=== PATIENT | male | born 1960 | race Caucasian/White ===

== ENCOUNTER 2019-12-13 09:45 | Inpatient (IN) | payer OTHER ==
[~2019-12-13] VITALS: Ht 170.2 cm; Wt 87.2 kg
[2019-12-13] MEDS ORDERED: BENA40TA3 PO (10:55)
[2019-12-13 10:56] LABS: BASOPHILS # (AUTO) 0.01 x10^3/uL (0-0.1); BASOPHILS % (AUTO) 0 % (0-1); EOSINOPHILS % (AUTO) 0 % (1-7); LYMPHOCYTES # (AUTO) 0.38 x10^3/uL (1-3.4); LYMPHOCYTES % (AUTO) 6 % (22-44); MD NO; MEAN CORPUSCULAR HEMOGLOBIN 31.6 pg (27.5-34.5); MEAN CORPUSCULAR HGB CONC 33.3 g/dL (33.2-36.2); MEAN PLATELET VOLUME 6.3 fL (7.4-10.4); MONOCYTES # (AUTO) 0.41 x10^3/uL (0.2-0.8); MONOCYTES % (AUTO) 6 % (2-9); NEUTROPHILS # (AUTO) 5.77 x10^3/uL (1.8-6.8); NEUTROPHILS % (AUTO) 88 % (42-75); PLATELET COUNT 272 x10^3/uL (130-400); RED CELL DISTRIBUTION WIDTH 12.2 % (9.4-14.8)
[2019-12-13 11:05] LABS: ALANINE AMINOTRANSFERASE 99 U/L (12-78); ALBUMIN 2.8 g/dL (3.4-5.0); ANION GAP 10 mmol/L (5-15); CALCIUM 8.5 mg/dL (8.5-10.1); CHLORIDE 103 mmol/L (98-107)
[2019-12-13 11:08] LABS: ALKALINE PHOSPHATASE 49 U/L (45-117); BILIRUBIN,TOTAL 0.5 mg/dL (0.2-1.0); TOTAL PROTEIN 7.3 g/dL (6.4-8.2)
--- NOTE | 2019-12-13 11:32 | NUR ---
PLAN FOR CT EXPLAINED TO PT. PIV ESTABLISHED. SP02 FLUCTUATING BETWEEN 87-90% ON RA, 2L NC PLACED WITH EFFECT. CALL LIGHT W/I REACH
[2019-12-13] MEDS ORDERED: OMNIPAQUE 350 MG/ML, 100ML BOTTLE ONE (12:11)
[2019-12-13] MEDS ORDERED: CEFTRIAXONE PMX 1GM/50ML 50 ML IV ONE (12:30)
[2019-12-13] MEDS ORDERED: AZITHROMYCIN 500 MG in SODIUM CHLORIDE 0.9% 250 ML IV ONE (12:30)
[2019-12-13] MEDS ORDERED: CEFTRIAXONE PMX 1GM/50ML 50 ML ONE (12:40)
[2019-12-13] MEDS ORDERED: ACETAMINOPHEN 500 MG TABLET PO ONE (13:00)
[2019-12-13] MEDS ORDERED: ACETAMINOPHEN 500 MG TABLET ONE (13:16)
[2019-12-13] MEDS: AZITHROMYCIN 500 MG in SODIUM CHLORIDE 0.9% 250 ML IV SCH (14:00)
[2019-12-13] MEDS: CEFTRIAXONE PMX 1GM/50ML 50 ML IV SCH (14:00)
[2019-12-13] MEDS ORDERED: DEXAMETHASONE 4 MG/ML, 1ML ONE (14:10)
[2019-12-13] MEDS ORDERED: ENOXAPARIN 40 MG/0.4 ML ONE (14:10)
[2019-12-13] MEDS: ENOXAPARIN 40 MG/0.4 ML SQ SCH (14:11)
[2019-12-13] MEDS: DEXAMETHASONE 4 MG/ML, 1ML IVPush SCH (14:11)
--- NOTE | 2019-12-13 14:17 | NUR ---
DIET TRAY ORDERED.
--- NOTE | 2019-12-13 14:31 | NUR ---
MEAL TRAY PROVIDED AND SET UP
--- NOTE | 2019-12-13 16:10 | NUR ---
PT ATE ONLY 10% OF MEAL
[2019-12-13] MEDS: ASCORBIC ACID 500 MG TABLET PO SCH (17:19)
[2019-12-13 18:02] VITALS: BP 133/86
[2019-12-13 19:31] VITALS: BP 128/82
[2019-12-13] MEDS: THIAMINE 100MG TABLET PO SCH (20:47)
[2019-12-14 01:19] VITALS: BP 136/84
[2019-12-14] MEDS: DEXAMETHASONE 4 MG/ML, 1ML IVPush SCH ×2 (02:15→13:52)
[2019-12-14 06:06] LABS: CHLORIDE 106 mmol/L (98-107)
[2019-12-14 06:21] LABS: ALANINE AMINOTRANSFERASE 112 U/L (12-78); ALBUMIN 2.4 g/dL (3.4-5.0); ALKALINE PHOSPHATASE 47 U/L (45-117); ANION GAP 9 mmol/L (5-15); BILIRUBIN,TOTAL 0.4 mg/dL (0.2-1.0); CALCIUM 8.7 mg/dL (8.5-10.1); CREATININE 0.93 mg/dL (0.7-1.3); TOTAL PROTEIN 6.6 g/dL (6.4-8.2)
[2019-12-14 06:46] LABS: BASOPHILS % (AUTO) 0 % (0-1); EOSINOPHILS % (AUTO) 0 % (1-7); LYMPHOCYTES # (AUTO) 0.48 x10^3/uL (1-3.4); LYMPHOCYTES % (AUTO) 12 % (22-44); MEAN CORPUSCULAR HEMOGLOBIN 31.5 pg (27.5-34.5); MEAN CORPUSCULAR HGB CONC 33.2 g/dL (33.2-36.2); MEAN PLATELET VOLUME 6.6 fL (7.4-10.4); MONOCYTES # (AUTO) 0.32 x10^3/uL (0.2-0.8); MONOCYTES % (AUTO) 8 % (2-9); NEUTROPHILS # (AUTO) 3.09 x10^3/uL (1.8-6.8); NEUTROPHILS % (AUTO) 79 % (42-75); PLATELET COUNT 272 x10^3/uL (130-400); RED BLOOD COUNT 4.99 x10^6/uL (4.38-5.82); RED CELL DISTRIBUTION WIDTH 12.3 % (9.4-14.8)
[2019-12-14 06:47] LABS: MD SCAN
[2019-12-14 08:26] VITALS: BP 131/84
[2019-12-14] MEDS: ASCORBIC ACID 500 MG TABLET PO SCH ×2 (08:51→16:54)
[2019-12-14] MEDS: THIAMINE 100MG TABLET PO SCH ×2 (08:52→20:28)
[2019-12-14] MEDS: BENAZEPRIL 20 MG TABLET PO SCH (08:52)
[2019-12-14] MEDS: ZINC SULFATE 220 MG CAPSULE PO SCH (08:52)
[2019-12-14] MEDS: CHOLECALCIFEROL 5,000u TAB PO SCH (08:52)
[2019-12-14 13:09] VITALS: BP 116/74
[2019-12-14] MEDS: ENOXAPARIN 40 MG/0.4 ML SQ SCH (13:50)
[2019-12-14] MEDS: CEFTRIAXONE PMX 1GM/50ML 50 ML IV SCH (13:53)
[2019-12-14] MEDS: AZITHROMYCIN 500 MG in SODIUM CHLORIDE 0.9% 250 ML IV SCH (15:11)
[2019-12-14 19:46] VITALS: BP 124/81
[2019-12-15 01:12] VITALS: BP 136/88
[2019-12-15] MEDS: DEXAMETHASONE 4 MG/ML, 1ML IVPush SCH ×2 (03:18→13:45)
[2019-12-15 07:32] VITALS: BP 125/80
[2019-12-15] MEDS: BENAZEPRIL 20 MG TABLET PO SCH (09:15)
[2019-12-15] MEDS: ASCORBIC ACID 500 MG TABLET PO SCH ×2 (09:15→17:30)
[2019-12-15] MEDS: ZINC SULFATE 220 MG CAPSULE PO SCH (09:15)
[2019-12-15] MEDS: CHOLECALCIFEROL 5,000u TAB PO SCH (09:15)
[2019-12-15] MEDS: THIAMINE 100MG TABLET PO SCH ×2 (09:15→20:12)
[2019-12-15] MEDS: CEFTRIAXONE PMX 1GM/50ML 50 ML IV SCH (13:46)
[2019-12-15] MEDS: ENOXAPARIN 40 MG/0.4 ML SQ SCH (13:46)
[2019-12-15 14:21] VITALS: BP 137/77
[2019-12-15] MEDS: AZITHROMYCIN 500 MG in SODIUM CHLORIDE 0.9% 250 ML IV SCH (14:36)
[2019-12-15 18:58] LABS: CLOSTRIDIUM DIFFICILE ANTIGEN NEGATIVE; CLOSTRIDIUM DIFFICILE TOXIN NEGATIVE (Negative)
[2019-12-15 19:51] VITALS: BP 137/83
[2019-12-16 01:20] VITALS: BP 126/74
[2019-12-16] MEDS: DEXAMETHASONE 4 MG/ML, 1ML IVPush SCH ×2 (01:52→11:19)
[2019-12-16] MEDS ORDERED: MELATONIN 5 MG TABLET ONE (02:06)
[2019-12-16] MEDS ORDERED: MELATONIN 5 MG TABLET PO ONE (02:30)
[2019-12-16 08:04] VITALS: BP 132/79
[2019-12-16] MEDS ORDERED: BENAZEPRIL 10 MG TABLET ONE (09:07)
[2019-12-16] MEDS: THIAMINE 100MG TABLET PO SCH ×2 (09:13→20:08)
[2019-12-16] MEDS: CHOLECALCIFEROL 5,000u TAB PO SCH (09:13)
[2019-12-16] MEDS: ZINC SULFATE 220 MG CAPSULE PO SCH (09:13)
[2019-12-16] MEDS: BENAZEPRIL 20 MG TABLET PO SCH (09:13)
[2019-12-16] MEDS: ASCORBIC ACID 500 MG TABLET PO SCH ×2 (09:13→16:11)
[2019-12-16 12:51] VITALS: BP 133/76
[2019-12-16] MEDS: CEFTRIAXONE PMX 1GM/50ML 50 ML IV SCH (14:48)
[2019-12-16] MEDS: ENOXAPARIN 40 MG/0.4 ML SQ SCH (14:48)
[2019-12-16] MEDS: AZITHROMYCIN 500 MG in SODIUM CHLORIDE 0.9% 250 ML IV SCH (16:04)
[2019-12-16] MEDS: Enoxaparin 1 mg/kg protocol SQ SCH (16:12)
[2019-12-16] MEDS ORDERED: ENOXAPARIN 40 MG/0.4 ML SQ ONE (16:30)
[2019-12-16 20:03] VITALS: BP 143/84
[2019-12-16] MEDS ORDERED: MELATONIN 5 MG TABLET PO PRN (21:30)
[2019-12-17 00:49] VITALS: BP 153/83
[2019-12-17] MEDS: Enoxaparin 1 mg/kg protocol SQ SCH ×2 (01:27→16:00)
[2019-12-17] MEDS: ENOXAPARIN 80 MG/0.8 ML SQ SCH ×2 (05:03→16:41)
[2019-12-17 05:32] LABS: ALBUMIN 2.3 g/dL (3.4-5.0); ANION GAP 5 mmol/L (5-15); CALCIUM 8.7 mg/dL (8.5-10.1); CHLORIDE 112 mmol/L (98-107)
[2019-12-17 05:37] LABS: ALANINE AMINOTRANSFERASE 184 U/L (12-78); ALKALINE PHOSPHATASE 51 U/L (45-117); BILIRUBIN,TOTAL 0.4 mg/dL (0.2-1.0); CREATININE 0.85 mg/dL (0.7-1.3)
[2019-12-17 07:30] VITALS: BP 132/82
[2019-12-17] MEDS: ZINC SULFATE 220 MG CAPSULE PO SCH (08:26)
[2019-12-17] MEDS: DEXAMETHASONE 4 MG/ML, 1ML IVPush SCH (08:26)
[2019-12-17] MEDS: THIAMINE 100MG TABLET PO SCH ×2 (08:26→20:29)
[2019-12-17] MEDS: ASCORBIC ACID 500 MG TABLET PO SCH ×2 (08:26→16:41)
[2019-12-17] MEDS: CHOLECALCIFEROL 5,000u TAB PO SCH (08:27)
[2019-12-17] MEDS: BENAZEPRIL 20 MG TABLET PO SCH (09:37)
[2019-12-17 12:30] VITALS: BP 130/80
[2019-12-17] MEDS: CEFTRIAXONE PMX 1GM/50ML 50 ML IV SCH (14:20)
[2019-12-17] MEDS: AZITHROMYCIN 500 MG in SODIUM CHLORIDE 0.9% 250 ML IV SCH (15:02)
[2019-12-17 18:50] VITALS: BP 163/95
[2019-12-18 00:22] VITALS: BP 135/75
[2019-12-18] MEDS: Enoxaparin 1 mg/kg protocol SQ SCH ×2 (04:00→16:00)
[2019-12-18] MEDS: ENOXAPARIN 80 MG/0.8 ML SQ SCH (04:08)
[2019-12-18 06:44] VITALS: BP 123/75
[2019-12-18] MEDS: ASCORBIC ACID 500 MG TABLET PO SCH (08:16)
[2019-12-18] MEDS: THIAMINE 100MG TABLET PO SCH (08:17)
[2019-12-18] MEDS: CHOLECALCIFEROL 5,000u TAB PO SCH (08:17)
[2019-12-18] MEDS: BENAZEPRIL 20 MG TABLET PO SCH (08:17)
[2019-12-18] MEDS: DEXAMETHASONE 4 MG/ML, 1ML IVPush SCH (08:17)
[2019-12-18] MEDS: ZINC SULFATE 220 MG CAPSULE PO SCH (08:39)
[2019-12-18] MEDS ORDERED: RIVA10TA2 PO (11:45)
[2019-12-18] MEDS ORDERED: AZIT500T10 PO (11:45)
[2019-12-18] MEDS ORDERED: GUAI-103 PO (11:45)
[2019-12-18] MEDS ORDERED: THIA100T67 PO (11:45)
[2019-12-18] MEDS ORDERED: ZINC220C7 PO (11:45)
[2019-12-18] MEDS ORDERED: CHOL500045 PO (11:45)
[2019-12-18] MEDS ORDERED: ASCO500T9 PO (11:45)
[2019-12-18] MEDS ORDERED: AMOX1TAB64 PO (11:45)
[2019-12-18 12:23] VITALS: BP 127/86
[2019-12-18] MEDS: AZITHROMYCIN 500 MG in SODIUM CHLORIDE 0.9% 250 ML IV SCH (13:14)
[2019-12-18] MEDS: CEFTRIAXONE PMX 1GM/50ML 50 ML IV SCH (13:15)
== END 2019-12-18 16:30 | disposition home or self-care (01) | DRG 177 ==
LOC: ED 10:52 → EDIP 12:49 → 4EST 17:45 → UNDODISIN 12-18 14:28
PROVIDERS: ADMIT Internal Medicine; ATTEND Internal Medicine
DX: U07.1 COVID-19 (principal); J96.01 Acute respiratory failure with hypoxia; J12.89 Other viral pneumonia; I10 Essential (primary) hypertension
CPT/HCPCS: 36415; 71045; 71275; 80053; 83036; 83605; 84145; 85025; 85379; 87040; 87324; 87635; 93005; 96365; 96368; G0378; J0456; J0696; J1100; J1650; Q9967; J7050